=== PATIENT | female | born 1980 | race Asian ===

== ENCOUNTER 2019-08-05 16:52 | Emergency (ER) | payer OTHER ==
[~2019-08-05] VITALS: Ht 152.4 cm; Wt 60.0 kg
[~2019-08-05 16:52] MED LIST: HYDR-3164 PO; NAPR500T8 PO
--- NOTE | 2019-08-05 17:49 | PHYS DOC ---
Past Medical History Past Medical History: No Pertinent History Past Surgical History: No Surgical History Smoking Status: Never Smoker Alcohol Use: None Adult General Chief Complaint Chief Complaint: OTHER COMPLAINTS [facility] HPI Patient is a 39 year old female who presents with chief complaints that she feels like something is stuck in her throat. The patient states that she was eating rice with vegetables and beef around 4:00 PM is a something got stuck she 's not been able to swallow. States she got a little dizzy after it happened as she got anxious initially. Denies any other complaints. Complete ROS were reviewed and found to be within normal limits, except as documented in the HPI Current Medications Current Medications Current Medications Medications (Trade) Dose Ordered Sig/Martina Start Time Stop Time Status Last Admin Dose Admin Nitroglycerin (Nitrostat) 0.4 mg 1X STAT 08/05/19 17:36 08/05/19 17:39 DC 08/05/19 18:01 0.4 MG Allergies Allergies Allergies Coded Allergies Type Severity Reaction Last Updated Verified No Known Drug Allergies 07/04/15 No Physical Exam Physical Exam Constitutional: Well developed, well nourished, no acute distress, non-toxic appearance, patient is talking in full sentences, no drooling noted. HENT: Normocephalic, atraumatic, bilateral external ears normal, oropharynx moist, no oral exudates, nose normal. [] Eyes: PERRLA, EOMI, conjunctiva normal, no discharge. [] Neck: Normal range of motion, no tenderness, supple, no stridor. [] Cardiovascular:Heart rate regular rhythm, no murmur [] Lungs & Thorax: Bilateral breath sounds clear to auscultation [] Skin: Warm, dry, no erythema, no rash. [] ] Neurologic: Alert and oriented X 3, normal motor function, normal sensory function, no focal deficits noted. [] Psychologic: Affect normal, judgement normal, mood normal. [] Current Patient Data Vital Signs Vital Signs Date Time Temp Pulse Resp B/P (MAP) Pulse Ox O2 Delivery O2 Flow Rate FiO2 08/05/19 18:01 68 113/78 08/05/19 17:13 98.0 16 100 Room Air 98.0 EKG EKG [] Radiology/Procedures Radiology/Procedures [] Course & Med Decision Making Course & Med Decision Making Pertinent Labs and Imaging studies reviewed. (See chart for details) Will give nitroglycerin mixed in water. Will also get X-ray. Nitro helped the food bolus some. Will have her drink a coke. The coke helped the majority of food bolus disappear. Patient feels to go home. Will d/c home. Dragon Disclaimer Dragon Disclaimer This electronic medical record was generated, in whole or in part, using a voice recognition dictation system. Departure Departure Impression: Primary Impression: Foreign body in esophagus Disposition: HOME, SELF-CARE Condition: STABLE Referrals: NO PCP (PCP) Additional Instructions: Thank you for visiting [facility]. We appreciate you trusting us with your care. If any additional problems come up don't hesitate to return to visit us. Please follow up with your primary care provider so they can plan additional care if needed and know about the problem that you had. If symptoms worsen come back to the Emergency Department. Any concerning symptoms that start such as chest pain, shortness of air, weakness or numbness on one side of the body, running high fevers or any other concerning symptoms return to the ER. Problem Qualifiers Primary Impression: Foreign body in esophagus Encounter type: initial encounter Qualified Codes: T18.108A - Unspecified foreign body in esophagus causing other injury, initial encounter SUNDAY ONTIVEROS APRN Aug 05, 2019 17:49
[2019-08-05] MEDS: NITROGLYCERIN SUBLINGUAL 0.4 MG BOTTLE OF 25. SL STA (18:01)
[2019-08-05 18:21] VITALS: BP 108/67
--- NOTE | 2019-08-05 18:49 | RAD ---
Study: PORTABLE CHEST 1V Indication: Foreign body sensation in the throat. Comparison: None. Findings: No radiodense foreign body is identified. No lobar infiltrate, pleural effusion or pneumothorax. Mild prominence of the cardiomediastinal silhouette favored related to technique. Impression: No retained radiopaque foreign body or other abnormality seen throughout the chest. Electronically signed by: ALE BOSS MD (08/05/2019 6:46 PM) [id number]
== END 2019-08-05 19:26 | disposition home or self-care (01) ==
LOC: ER 16:52
DX: T18.108A Unspecified foreign body in esophagus causing other injury, initial encounter (principal); R42 Dizziness and giddiness; F41.9 Anxiety disorder, unspecified; X58.XXXA Exposure to other specified factors, initial encounter; Y93.89 Activity, other specified; Y92.89 Other specified places as the place of occurrence of the external cause; Y99.8 Other external cause status
CPT/HCPCS: 71045; 99283

== ENCOUNTER 2021-11-12 16:00 | Emergency (ER) | payer OTHER ==
[~2021-11-12] VITALS: Ht 152.4 cm; Wt 60.8 kg
[2021-11-12 16:23] VITALS: BP 126/80
[2021-11-12] MEDS ORDERED: KETOROLAC 30 MG/ML VIAL. IM ONE (18:00)
[2021-11-12] MEDS ORDERED: CETI10TA74 PO (18:05)
[2021-11-12] MEDS ORDERED: DEXA6TAB6 PO (18:05)
[2021-11-12] MEDS ORDERED: DIPH25TA64 PO (18:05)
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
--- NOTE | 2021-11-12 18:25 | RAD ---
Three-view left wrist AP lateral oblique views The visualized osseous structures appear normal. IMPRESSION: Negative examination. Electronically signed by: Raymundo Thapa III, MD (11/12/2021 6:23 PM) [facility]
== END 2021-11-12 19:06 | disposition home or self-care (01) ==
LOC: ER 16:00
DX: S40.022A Contusion of left upper arm, initial encounter (principal); V43.52XA Car driver injured in collision with other type car in traffic accident, initial encounter; Y93.I9 Activity, other involving external motion; Y92.89 Other specified places as the place of occurrence of the external cause; Y99.8 Other external cause status
CPT/HCPCS: 29125; 73080; 73120; 96372; 99284; J1885; 96361; 96374; 96375; 96376; 99285